=== PATIENT | male | born 1995 | race Asian ===

== ENCOUNTER 2017-03-07 00:47 | Emergency (ER) | payer SELFPAY ==
[~2017-03-07] VITALS: Ht 165.1 cm; Wt 60.3 kg
[2017-03-07 00:49] VITALS: BP 99/54
[2017-03-07] MEDS ORDERED: DIPHTHERIA-TETANUS ADULT 0.5ML IM-VACC ONE (01:30)
[2017-03-07] MEDS ORDERED: DIPH,PERTUSS(ACELL),TET VAC/PF 0.5 ML IM-VACC ONE ×2 (01:30→01:33)
[2017-03-07] MEDS ORDERED: LIDOCAINE 1%, 20ML INFIL ONE (01:30)
[2017-03-07] MEDS ORDERED: LIDOCAINE 1%, 20ML ONE (01:32)
== END 2017-03-07 02:20 | disposition left against medical advice (07) ==
LOC: ED 01:00
DX: S06.0X0A Concussion without loss of consciousness, initial encounter (principal); S01.01XA Laceration without foreign body of scalp, initial encounter; V29.3XXA Motorcycle rider (driver) (passenger) injured in unspecified nontraffic accident, initial encounter; Y93.89 Activity, other specified; Y92.89 Other specified places as the place of occurrence of the external cause; Y99.9 Unspecified external cause status
CPT/HCPCS: 12002; 70450; 90471; 90715

== ENCOUNTER 2017-03-16 09:19 | Emergency (ER) | payer SELFPAY ==
[~2017-03-16] VITALS: Ht 167.6 cm; Wt 60.0 kg
[2017-03-16 09:25] VITALS: BP 118/82
== END 2017-03-16 10:19 | disposition home or self-care (01) ==
LOC: ED 10:13
DX: S01.01XD Laceration without foreign body of scalp, subsequent encounter (principal)
CPT/HCPCS: 99281